=== PATIENT | female | born 2000 | race Caucasian/White ===

== ENCOUNTER → 2024-06-19 08:16 | Outpatient (BNVA) | payer BC, SELFPAY | PROVIDERS: Visit Provider Nurse Practitioner Women's Health | DX: N92.6 Irregular menstruation, unspecified (principal); E03.9 Hypothyroidism, unspecified; N39.0 Urinary tract infection, site not specified | CPT/HCPCS: 81025; 84315; 84439; 84443 ==

== ENCOUNTER → 2024-06-22 08:49 | Outpatient (BNVA) | payer SELFPAY | PROVIDERS: Visit Provider Nurse Practitioner Women's Health | DX: Z36.87 Encounter for antenatal screening for uncertain dates (principal); N83.292 Other ovarian cyst, left side; Z3A.01 Less than 8 weeks gestation of pregnancy | CPT/HCPCS: 76801 ==

== ENCOUNTER → 2024-07-08 09:52 | Outpatient (BNVA) | payer BC, MEDICAID, SELFPAY | PROVIDERS: Visit Provider Nurse Practitioner Women's Health | DX: Z34.90 Encounter for supervision of normal pregnancy, unspecified, unspecified trimester (principal); Z34.00 Encounter for supervision of normal first pregnancy, unspecified trimester | CPT/HCPCS: 80307; 84315; 85025; 86592; 86762; 86803; 86850; 86900; 87086; 87340; 87806 ==

== ENCOUNTER → 2024-07-23 10:57 | Outpatient (BNVA) | payer BC, MEDICAID, SELFPAY | PROVIDERS: Visit Provider Obstetrics & Gynecology | DX: Z34.01 Encounter for supervision of normal first pregnancy, first trimester (principal) | CPT/HCPCS: 84315; 87491; 87591; 87624 ==

== ENCOUNTER → 2024-08-07 09:30 | Outpatient (BNVA) | payer BC, MEDICAID, SELFPAY | PROVIDERS: Visit Provider Obstetrics & Gynecology | DX: E03.9 Hypothyroidism, unspecified (principal) | CPT/HCPCS: 84443 ==

== ENCOUNTER → 2024-08-21 13:56 | Outpatient (BNVA) | payer BC, MEDICAID, SELFPAY | PROVIDERS: Visit Provider Nurse Practitioner Women's Health | DX: Z34.01 Encounter for supervision of normal first pregnancy, first trimester (principal); Z34.90 Encounter for supervision of normal pregnancy, unspecified, unspecified trimester | CPT/HCPCS: 82105; 84315 ==

== ENCOUNTER → 2024-09-15 14:24 | Outpatient (BNVA) | payer BC, MEDICAID, SELFPAY | PROVIDERS: Visit Provider Obstetrics & Gynecology | DX: Z36.9 Encounter for antenatal screening, unspecified (principal) | CPT/HCPCS: 76805 ==

== ENCOUNTER → 2024-09-21 11:26 | Outpatient (BNVA) | payer BC, MEDICAID, SELFPAY | PROVIDERS: Visit Provider Obstetrics & Gynecology | DX: Z34.01 Encounter for supervision of normal first pregnancy, first trimester (principal) | CPT/HCPCS: 84315; 84443 ==

== ENCOUNTER → 2024-10-15 15:39 | Outpatient (BNVA) | payer BC, MEDICAID, SELFPAY | PROVIDERS: Visit Provider Obstetrics & Gynecology | DX: Z36.9 Encounter for antenatal screening, unspecified (principal) | CPT/HCPCS: 76816; 82950; 84315 ==

== ENCOUNTER → 2024-10-21 08:09 | Outpatient (BNVA) | payer BC, MEDICAID, SELFPAY | PROVIDERS: Visit Provider Nurse Practitioner Women's Health | DX: Z34.01 Encounter for supervision of normal first pregnancy, first trimester (principal) | CPT/HCPCS: 82951; 82952 ==

== ENCOUNTER → 2024-11-13 13:44 | Outpatient (BNVA) | payer BC, MEDICAID, SELFPAY | PROVIDERS: Visit Provider Obstetrics & Gynecology | DX: Z34.90 Encounter for supervision of normal pregnancy, unspecified, unspecified trimester (principal) | CPT/HCPCS: 84315 ==

== ENCOUNTER → 2024-11-19 13:39 | Outpatient (BNVA) | payer BC, MEDICAID, SELFPAY | PROVIDERS: Visit Provider Obstetrics & Gynecology | DX: Z34.90 Encounter for supervision of normal pregnancy, unspecified, unspecified trimester (principal) | CPT/HCPCS: 84315; 84443; 85025 ==

== ENCOUNTER → 2024-12-03 13:16 | Outpatient (BNVA) | payer BC, MEDICAID, SELFPAY | PROVIDERS: Visit Provider Obstetrics & Gynecology | DX: Z34.90 Encounter for supervision of normal pregnancy, unspecified, unspecified trimester (principal) | CPT/HCPCS: 84315 ==

== ENCOUNTER → 2024-12-18 14:02 | Outpatient (BNVA) | payer BC, MEDICAID, SELFPAY | PROVIDERS: Visit Provider Nurse Practitioner Women's Health | DX: Z34.90 Encounter for supervision of normal pregnancy, unspecified, unspecified trimester (principal) | CPT/HCPCS: 84315 ==

== ENCOUNTER → 2024-12-25 15:03 | Outpatient (BNVA) | payer BC, MEDICAID, SELFPAY | PROVIDERS: Visit Provider Nurse Practitioner Women's Health | DX: Z34.01 Encounter for supervision of normal first pregnancy, first trimester (principal) | CPT/HCPCS: 84315 ==

== ENCOUNTER → 2025-01-01 15:08 | Outpatient (BNVA) | payer BC, MEDICAID, SELFPAY | PROVIDERS: Visit Provider Obstetrics & Gynecology | DX: E03.9 Hypothyroidism, unspecified (principal); Z34.90 Encounter for supervision of normal pregnancy, unspecified, unspecified trimester | CPT/HCPCS: 84315; 84443; 87081 ==

== ENCOUNTER → 2025-01-04 13:10 | Outpatient (BNVA) | payer BC, MEDICAID, SELFPAY | PROVIDERS: Visit Provider Nurse Practitioner Women's Health | DX: Z36.9 Encounter for antenatal screening, unspecified (principal) | CPT/HCPCS: 76816 ==

== ENCOUNTER → 2025-01-08 07:38 | Outpatient (BNVA) | payer BC, MEDICAID, SELFPAY | PROVIDERS: Visit Provider Obstetrics & Gynecology | DX: Z34.01 Encounter for supervision of normal first pregnancy, first trimester (principal) | CPT/HCPCS: 84315 ==

== ENCOUNTER 2025-01-11 07:13 | Outpatient (CLI) | payer BC, MEDICAID, SELFPAY ==
[2025-01-11] VITALS (7 sets, daily range): BP systolic 111–126; BP diastolic 70–87; PULSE 73–82; BMI 30.2
[2025-01-11 08:59] LABS: Bacteria Urine 1+ /hpf; Hyaline Casts Urine 0.81 /lpf; RBC Urine 0-2 /hpf (0-2); WBC Urine 21-50 /hpf (0-5)
[2025-01-11 09:06] LABS: Urine Color Yellow (Yellow)
[2025-01-11 09:07] LABS: Add Urine Microscopic? YES; Bilirubin Urine Neg (Negative); Blood Urine Neg (Negative); Glucose Urine UA Norm (Normal); Ketones Urine Negative (Negative); Leukocyte Esterase Urine 2+ (Negative); Nitrate Urine Negative (Negative); Protein Urine Neg (Negative); Urine Appearance Cloudy (CLEAR); Urobilinogen Urine Neg (Negative); pH Urine 5 (5-7)
[2025-01-11 09:08] LABS: Add Urine Culture? Yes
[2025-01-11 09:16] LABS: Urine Creatinine 59 mg/dL (28-217); Urine Protein Random 5 mg/dL
[2025-01-11 09:18] LABS: UPRO/UCREAT Ratio 0.08 mg/mg CR
[2025-01-11 09:24] LABS: Basophils % 0.2 %; Eosinophils # 0.1 10^3/uL (0.0-0.8); Eosinophils % 0.7 %; Hematocrit 37.5 % (36-47); Lymphocytes # 1.4 10^3/uL (0.8-4.8); Lymphocytes % 15.2 %; Mean Corpuscular HGB Conc 32.8 g/dL (30-55); Mean Corpuscular Hemoglobin 28.5 pg (27-33); Mean Corpuscular Volume 86.8 fl (85-98); Mean Platelet Volume 10.9 fL (7.4-10.4); Monocytes # 0.8 10^3/uL (0.2-0.9); Monocytes % 8.7 %; Neutrophils # 7.07 10^3/uL (1.8-7.7); Neutrophils % 74.8 %; Nucleated Red Blood Cells % 0 %; Platelet Count 189 10^3/cmm (157-399); Red Blood Count 4.32 10^6/uL (3.85-5.65); Red Cell Distribution Width 12.7 % (12.1-15.1); White Blood Count 9.46 10^3/uL (3.29-11.43)
[2025-01-11 09:47] LABS: Alanine Aminotransferase 12 U/L (0-33); Albumin Level 3.5 g/dL (3.5-5.2); Alkaline Phosphatase 128 U/L (35-105); Anion Gap 16.8 (5-19); Aspartate Amino Transferase 21 U/L (0-32); Blood Urea Nitrogen 7 mg/dL (6-20); Calcium 8.5 mg/dL (8.5-10.5); Carbon Dioxide 19 mmol/L (22-29); Chloride 104 mmol/L (98-107); Globulin 2.8 g/dL (1.3-4.6); Glomerular Filtration Rate 199.6 mL/min (90-130); Glucose 77 mg/dL (65-115); Osmolality Calculated 279 mOsm/kg (285-295); Potassium 3.8 mmol/L (3.5-5.1); Sodium 136 mmol/L (136-145); Total Bilirubin 0.2 mg/dL (0.15-1.2); Total Protein 6.3 g/dL (6.6-8.7)
== END 2025-01-11 10:02 | disposition home or self-care (01) ==
LOC: OPOB 07:21 → OBGYN 07:27
PROVIDERS: Visit Provider Obstetrics & Gynecology
DX: O26.899 Other specified pregnancy related conditions, unspecified trimester (principal); Z3A.00 Weeks of gestation of pregnancy not specified; R51.9 Headache, unspecified
CPT/HCPCS: 36415; 59025; 80053; 81001; 82570; 84156; 84550; 85025; 87086; 99211

== ENCOUNTER → 2025-01-15 13:07 | Outpatient (BNVA) | payer BC, MEDICAID, SELFPAY | PROVIDERS: Visit Provider Nurse Practitioner Women's Health | DX: Z34.90 Encounter for supervision of normal pregnancy, unspecified, unspecified trimester (principal); E03.9 Hypothyroidism, unspecified | CPT/HCPCS: 84315; 84443 ==

== ENCOUNTER → 2025-01-20 12:57 | Outpatient (BNVA) | payer BC, MEDICAID, SELFPAY | PROVIDERS: Visit Provider Obstetrics & Gynecology | DX: Z34.01 Encounter for supervision of normal first pregnancy, first trimester (principal) | CPT/HCPCS: 84315 ==

== ENCOUNTER 2025-01-29 16:36 | Inpatient (IN) | payer BC, MEDICAID, SELFPAY ==
[2025-01-29] VITALS (19 sets, daily range): BP systolic 116–134; BP diastolic 71–96; PULSE 65–100; RESP 16; TEMP 35.8–36.7; BMI 30.7
--- NOTE | 2025-01-29 15:53 | PM.OPHPUD ---
Labor & Delivery H&P Update Date of Procedure: January 29, 2025 Date H&P Performed: 01/20/25 Changes to previous documentation: 24-year-old female G1, P0 at 39 weeks gestation with DAWIT 01/29/2025 seen in clinic today for evaluation. Elective induction of labor was reviewed with patient and patient sent to labor and delivery. record has been reviewed, discussion of elective induction of labor to include cervical ripening with Cytotec, followed by Pitocin was reviewed. Patient understands that if nonreassuring monitoring results at any stage of this induction induction will be discontinued and a section performed if necessary. NST?category 1 Bedside ultrasound for presentation?Vertex Nursing pelvic exam?cervix fingertip/thick/-4 Admission Diagnosis: Primary indication for procedure: Elective induction of labor Planned procedure: Cervical ripening/induction of labor Related Problem List Diagnoses (1) 39 weeks gestation of : Admitted to labor and delivery for cervical ripening/induction electively. Risk and benefits reviewed. (2) Supervision of normal first : (3) Hypothyroidism: Diagnosed hypothyroidism age 7 or 9 treated with levothyroxine.
[2025-01-29 15:59] LABS: Basophils % 0.3 %; Eosinophils # 0.1 10^3/uL (0.0-0.8); Eosinophils % 0.6 %; Hematocrit 36.9 % (36-47); Lymphocytes # 1.4 10^3/uL (0.8-4.8); Lymphocytes % 16.3 %; Mean Corpuscular HGB Conc 33.1 g/dL (30-55); Mean Corpuscular Hemoglobin 28.2 pg (27-33); Mean Corpuscular Volume 85.4 fl (85-98); Mean Platelet Volume 11.3 fL (7.4-10.4); Monocytes # 0.7 10^3/uL (0.2-0.9); Monocytes % 8.5 %; Neutrophils # 6.44 10^3/uL (1.8-7.7); Nucleated Red Blood Cells % 0 %; Platelet Count 212 10^3/cmm (157-399); Red Blood Count 4.32 10^6/uL (3.85-5.65); Red Cell Distribution Width 13.2 % (12.1-15.1); White Blood Count 8.71 10^3/uL (3.29-11.43)
[2025-01-29] MEDS: miSOPROStol 100 mcg tablet 25 MCG VAGINAL ×2 (16:28→20:35)
[2025-01-30] VITALS (21 sets, daily range): BP systolic 109–138; BP diastolic 62–92; PULSE 61–83; RESP 18; TEMP 35.5–36.7
[2025-01-30] MEDS: miSOPROStol 100 mcg tablet 25 MCG VAGINAL ×3 (01:04→16:40)
--- NOTE | 2025-01-30 11:29 | P.PN_ITS ---
BIOMEDICAL MANAGER Subjective 2 Subjective: Interval history: 24-year-old G1, P0 at 40.1 weeks gestati on seen on labor and delivery day #2 of cervical ripening for elective induction of labor. Patient missed a good movement and occasional contractions felt. Cytotec No. 4 has been placed, cervix by nursing staff 1 cm / 50%/-3. EFM?category 1. Discussion again with the process of cervical ripening and induction, and the need for patience as progress occurs. Discussed patient being allowed to have a meal since there has been no progress by cervix exam. Patient encouraged to ambulate after this last dose of Cytotec has been placed vaginally for 1 hour. Patient and family understands and agrees. Labor: Station: -3 Amniotic Membrane Status: Intact Monitor Mode: External Contraction Pattern: Irregular Vitals/I&O/Wt Last Vital Signs Temp 95.9 F L 01/30/25 01:42 Pulse 68 01/30/25 10:54 Resp 16 01/29/25 20:09 BP 129/84 01/30/25 10:54 O2 Del Method Room Air 01/29/25 15:04 Weight last 48 hrs Weight 81.193 kg Data 01/29/25 15:36 A&P Assessment and plan (1) Supervision of normal first : Qualifiers: Trimester: first trimester Qualified Code(s): Z34.01 - Encounter for supervision of normal first , first trimester (2) 39 weeks gestation of : Plan Continue cervical ripening/elective induction of labor. PDMP PDMP Reviewed: Not Reviewed Attestations 2 Medical Necessity Statement*: Elective IOL Coding Level of Care Code Acute Code for Chg Fwd Diagnoses Encounter for supervision of normal first in first trimester Z34.01 Trimester: first trimester 39 weeks gestation of Z3A.39
[2025-01-30] MEDS: dextrose 5%-lactated ringers 1,000 ML 125 ML IV (21:08)
[2025-01-30] MEDS: oxytocin 30 UNIT/500 ML BAG IV (21:08)
[2025-01-31] VITALS (71 sets, daily range): BP systolic 114–153; BP diastolic 74–102; PULSE 55–101; RESP 16–18; TEMP 36.6–38.2; O2SAT 91–100
[2025-01-31] MEDS: dextrose 5%-lactated ringers 1,000 ML 125 ML IV ×5 (05:24→23:39)
--- NOTE | 2025-01-31 08:50 | PC.NURSE ---
0700 THIS PROJECT ENGINEER WAS TOLD IN SHIFT REPORT THAT PITOCIN IS AT LOW DOSE.
--- NOTE | 2025-01-31 09:50 | P.PN_ITS ---
ACTIVITIES DIRECTOR Subjective 2 Subjective: Interval history: 24-year-old female G1, P0 at 40.2 weeks gestation seen for continued induction of labor. Overnight patient has contracted irregularly and is presently on 12 units of Pitocin. She states her contractions are mild and admits to good movement. Discussion of induction and explanation for AROM to assist with labor. Patient and family understand and agree. EFM?category 1 Cervix?1/90%/-2 vertex AROM?meconium stained fluid noted Labor: Station: -3 Amniotic Membrane Status: Intact Monitor Mode: Palpation Contraction Pattern: Irregular Status: Category I Vitals/I&O/Wt Last Vital Signs Temp 98.6 F 01/31/25 06:55 Pulse 66 01/31/25 09:13 Resp 18 01/31/25 06:55 BP 127/86 01/31/25 09:13 O2 Del Method Room Air 01/30/25 21:09 01/30/25 01/31/25 01/31/25 22:59 06:59 14:59 Intake Total 5.534 / 5.534 1024.25 / 1029.784 18.0 / 18.0 Balance 5.534 / 5.534 1024.25 / 1029.784 18.0 / 18.0 Weight last 48 hrs Weight 81.193 kg Physical Exam 2 Back/Pelvis: OTHER: Pelvic exam as above Extremity: COMMON NORMALS: normal to inspection and no clubbing, cyanosis or edema Data 01/29/25 15:36 A&P Assessment and plan (1) 40 weeks gestation of : Continue IOL Epidural at patient's request. (2) Hypothyroidism: Qualifiers: Hypothyroidism type: acquired Qualified Code(s): E03.9 - Hypothyroidism, unspecified (3) Supervision of normal first : Qualifiers: Trimester: first trimester Qualified Code(s): Z34.01 - Encounter for supervision of normal first , first trimester PDMP PDMP Reviewed: Not Reviewed Attestations 2 Medical Necessity Statement*: Elective induction of labor for delivery at 40 weeks Coding Level of Care Code Acute Code for Chg Fwd Diagnoses 40 weeks gestation of Z3A.40 Acquired hypothyroidism E03.9 Hypothyroidism type: acquired Encounter for supervision of normal first in first trimester Z34.01 Trimester: first trimester
--- NOTE | 2025-01-31 12:27 | P.PN_ITS ---
MACHINE PRINTER Subjective 2 Subjective: Interval history: 24-year-old female G1, P0 at 40.2 weeks gestation now requesting epidural anesthesia for pain management. EFM?episodes of decreased variability, contractions q. 2 to 6 minutes. Continues to produce minimum to moderately stained meconium stained fluid. Will supplement with D5 LR IV fluid in hopes of increasing variability. Patient has not eaten in 24 hours. Labor: Station: -3 Amniotic Membrane Status: Intact Monitor Mode: External Contraction Pattern: Regular Status: Category I Vitals/I&O/Wt Last Vital Signs Temp 97.8 F 01/31/25 11:00 Pulse 65 01/31/25 12:18 Resp 16 01/31/25 11:00 BP 141/96 01/31/25 12:18 O2 Del Method Room Air 01/30/25 21:09 01/30/25 01/31/25 01/31/25 22:59 06:59 14:59 Intake Total 5.534 / 5.534 1024.25 / 1029.784 853.167 / 853.167 Balance 5.534 / 5.534 1024.25 / 1029.784 853.167 / 853.167 Weight last 48 hrs Weight 81.193 kg Data 01/29/25 15:36 A&P Assessment and plan (1) 40 weeks gestation of : (2) Supervision of normal first : Qualifiers: Trimester: first trimester Qualified Code(s): Z34.01 - Encounter for supervision of normal first , first trimester (3) Hypothyroidism: Qualifiers: Hypothyroidism type: acquired Qualified Code(s): E03.9 - Hypothyroidism, unspecified (4) Thick meconium stained amniotic fluid: PDMP PDMP Reviewed: Not Reviewed Attestations 2 Medical Necessity Statement*: Elective induction of labor. Coding Level of Care Code Acute Code for Chg Fwd Diagnoses 40 weeks gestation of Z3A.40 Encounter for supervision of normal first in first trimester Z34.01 Trimester: first trimester Acquired hypothyroidism E03.9 Hypothyroidism type: acquired Thick meconium stained amniotic fluid P96.83
--- NOTE | 2025-01-31 12:52 | ANES.PREANE2 ---
Pre-Anesthetic Assessment Height/Weight: Height 1.63 m Weight 81.193 kg Temp Pulse Resp BP Pulse Ox O2 Del Method 97.8 F 101 H 16 140/92 91 Room Air 01/31/25 11:00 01/31/25 12:48 01/31/25 11:00 01/31/25 12:46 01/31/25 12:48 01/30/25 21:09 Preop Diagnosis: Intrauterine Epidural Familial anesthetic complications: none Was Beta Selwyn taken within 24 hours: N/A Was Clonidine taken within 24 hours: N/A Last intake: 209901/30/25 Social No alcohol and No tobacco Exam alert, oriented x 3, clear to auscultation bilaterally and regular rate & rhythm Airway Cervical ROM: within normal limits Mallampati: Class II Dentition: full History/ROS No significant history except as noted Pulmonary None reported CV/HEM None reported None reported Hepatic None reported GI None reported Metabolic Thyroid Disease (Hypothyroid) Musc/skel None reported Neuropsych None reported Anesthetic Plan ASA status: 2 Anesthesia: Regional (specify below) (Epidural) Medications/Allergies Home Medications ?Medication ?Instructions ?Recorded ?Confirmed ?Last Taken ?Type levothyroxine 150 mcg tablet 150 mcg PO DAILY #30 tabs 11/20/24 01/30/25 Unknown Rx (Levoxyl) vitamin#30 30 mg iron-10 1 cap PO DAILY 01/15/25 01/30/25 Unknown History mg iron-folic acid 1 mg-omg3 capsule promethazine 25 mg tablet 25 mg PO Q6H PRN nausea and 01/15/25 01/30/25 Unknown Rx vomiting #30 tabs Allergies Allergy/AdvReac Type Severity Reaction Status Date / Time No Known Allergies Allergy Verified 01/29/25 12:54 Current Medications Generic Name Dose Route Start Last Admin Trade Name Freq PRN Reason Stop Dose Admin Dextrose/Lactated Ringer's 1,000 mls @ 125 mls/hr 01/29/25 16:00 01/31/25 11:50 Dextrose 5%-Lactated Ringers IV 125 mls/hr .Q8H IAN Administration Oxytocin 30 unit in 500 mls @ 1 mls/hr 01/30/25 20:45 01/31/25 11:15 Pitocin IV 14 milliunit/min .Q24H IAN 14 mls/hr Titration Protocol 1 MILLIUNIT/MIN Misoprostol 25 mcg 01/30/25 08:08 01/30/25 16:40 Misoprostol 100 Mcg Tablet VAGINAL 25 mcg Q4H PRN Administration cervical ripening PFSH Anesthesia Medical History Nasal sinus congestion No pertinent past medical history Neghx: htn, dm, dvt/pe PCP: None Hypothyroidism Surgical History History of appendectomy Family History Grandmother Breast cancer Thyroid disease Sister Thyroid disease Father Thyroid disease Mother Thyroid disease Denies family history of Colon cancer Ovarian cancer Prostate cancer Diabetes Heart disease Hypertension Uterine cancer Stroke Social History Smoking and tobacco/nicotine status: never used tobacco/nicotine Female Reproductive History : 1 Data Anesthesia 01/29/25 15:36 Short CBC 01/29/25 Range/Units 15:36 WBC 8.71 (3.29-11.43) 10^3/uL Hgb 12.20 (11.27-16.99) g/dL Hct 36.9 (36-47) % MCV 85.4 (85-98) fl Plt Count 212 (157-399) 10^3/cmm Neut % (Auto) 74.0 % Neut # (Auto) 6.44 (1.8-7.7) 10^3/uL Blood Bank 01/29/25 15:36 Blood Type O Positive Rho(D) Type Rh positive Antibody Screen Negative Cardiac Studies: No Data to Display Anesthesia Procedures Epidural Time Out Performed: Yes (Reviewed patient name, , allergy, last cervical check, labs, procedure) Consents Signed: Procedure Consent Consent: requested by attending/covering physician and from patient Lumbar Level: L4-L5 Epidural position: sitting Epidural procedure: sterile prep of area, 1% lidocaine to numb the area, 18 g needle, negative for paresthesia passed, neg for paresthesia, test dose given, 1.5% xylocaine 1:200k epi, 0.2% Ropivacaine bolus ml, placed PCEA, no systemic response, sterile dressing applied, L.U.D. no apparent complications and 0.2% Ropiavacaine @ mls/hr (13) Additional Comments: MELVIN @ 6cm, catheter @ 11cm, easy placement, no complications. Pt. tolerated well.
[2025-01-31] MEDS: ROPivacaine syringe 100 MG/50 ML SYRINGE 13 MG EPIDURAL ×3 (12:55→20:20)
--- NOTE | 2025-01-31 13:32 | PM.OBGYPN ---
RADIO MESSAGE ROUTER Subjective Subjective: Interval history: 24-year-old female G1, P0 at 40.2 weeks gestation seen on labor and delivery with continued induction of labor. Patient had 24 hours of Cytotec cervical ripening (4 doses) followed by Pitocin. This a.m. AROM revealed moderate meconium stained fluid. EFM?episodes of decreased variability without decelerations noted. With this category 2 strip noted there has been episodes of increased variability after IV D5 LR. Patient received epidural anesthesia for pain management 20 to 30 minutes ago. Just reviewed with patient and family decreased variability and its concern of wellbeing plan of possible if EFM does not show improvement. Nursing staff is present has reposition patient to her left side, and O2 applied through mask. All present verbalized understanding. Cervix?2 cm / 90%/-2 vertex Contractions every 5 to 6 minutes. Labor: Station: -2 Amniotic Membrane Status: Intact Monitor Mode: External Contraction Pattern: Regular Status: Category I Vitals/I&O/Wt Last Vital Signs Temp 98.4 F 01/31/25 12:00 Pulse 67 01/31/25 13:20 Resp 16 01/31/25 11:00 BP 137/90 01/31/25 13:20 Pulse Ox 100 01/31/25 13:01 O2 Del Method Room Air 01/30/25 21:09 01/30/25 01/31/25 01/31/25 22:59 06:59 14:59 Intake Total 5.534 / 5.534 1024.25 / 1029.784 990.667 / 990.667 Balance 5.534 / 5.534 1024.25 / 1029.784 990.667 / 990.667 Weight last 48 hrs Weight 81.193 kg Data 01/29/25 15:36 A&P Assessment and plan (1) Supervision of normal first : Qualifiers: Trimester: first trimester Qualified Code(s): Z34.01 - Encounter for supervision of normal first , first trimester (2) Hypothyroidism: Qualifiers: Hypothyroidism type: acquired Qualified Code(s): E03.9 - Hypothyroidism, unspecified (3) 40 weeks gestation of : (4) Thick meconium stained amniotic fluid: PDMP PDMP Reviewed: Not Reviewed Attestations Medical Necessity Statement*: Elective IOL. Coding Level of Care Code Acute Code for Chg Fwd Diagnoses Encounter for supervision of normal first in first trimester Z34.01 Trimester: first trimester Acquired hypothyroidism E03.9 Hypothyroidism type: acquired 40 weeks gestation of Z3A.40 Thick meconium stained amniotic fluid P96.83
--- NOTE | 2025-01-31 13:56 | PM.OBGYPN ---
SECURITY SERVICES SPECIALIST Subjective Subjective: Interval history: 24-year-old female G1, P0 at 40.2 weeks gestation admitted for 2024 for elective induction of labor. Patient had episodes of minimal variability since AROM. Intrauterine resuscitation techniques including IV fluid bolus, lateral positioning to the left and discontinuance of oxytocin were done. Placement of FSE and IUPC were done for better evaluation, and resulted in moderate variability. Again reviewed with patient and family we will continue monitoring with close observation of heart rate tracing. Labor: Station: -2 Amniotic Membrane Status: Intact Monitor Mode: External Contraction Pattern: Regular Status: Category I Vitals/I&O/Wt Last Vital Signs Temp 98.4 F 01/31/25 12:00 Pulse 63 01/31/25 13:50 Resp 16 01/31/25 11:00 BP 145/90 01/31/25 13:50 Pulse Ox 100 01/31/25 13:01 O2 Del Method Room Air 01/30/25 21:09 01/30/25 01/31/25 01/31/25 22:59 06:59 14:59 Intake Total 5.534 / 5.534 1024.25 / 1029.784 990.667 / 990.667 Balance 5.534 / 5.534 1024.25 / 1029.784 990.667 / 990.667 Weight last 48 hrs Weight 81.193 kg Physical Exam Urinary Catheter Management: Elena: Cath Placed During This Visit: yes Urinary Catheter Date of Insertion: 01/31/25 Urinary Catheter Time of Insertion: 13:00 Data 01/29/25 15:36 A&P Assessment and plan (1) Hypothyroidism: Qualifiers: Hypothyroidism type: acquired Qualified Code(s): E03.9 - Hypothyroidism, unspecified (2) Supervision of normal first : Qualifiers: Trimester: first trimester Qualified Code(s): Z34.01 - Encounter for supervision of normal first , first trimester (3) 40 weeks gestation of : (4) Thick meconium stained amniotic fluid: PDMP PDMP Reviewed: Not Reviewed Attestations Medical Necessity Statement*: Elective induction of labor Coding Level of Care Code Acute Code for Chg Fwd Diagnoses Acquired hypothyroidism E03.9 Hypothyroidism type: acquired Encounter for supervision of normal first in first trimester Z34.01 Trimester: first trimester 40 weeks gestation of Z3A.40 Thick meconium stained amniotic fluid P96.83
--- NOTE | 2025-01-31 14:46 | PC.NURSE ---
1430 ORDER OF PITOCIN TO RESTART AT 10 AND INCREASE BY 2 EVERY 30 MINUTES.
--- NOTE | 2025-01-31 15:12 | P.PN_ITS ---
SUPERVISOR VEGETABLE FARMING Subjective 2 Subjective: Interval history: 24-year-old female G1, P0 at 40.2 weeks gestation continues to have episodes of decreased variability. Baby reacts to scalp stimulation with increased variability for a category 1 tracing. Cervix?2 to 3 cm / 90%/-1 vertex FSE is well applied but IUPC had to be removed for it was not tracing. Contractions are being monitored by external toco. Patient comfortable with epidural. Labor: Station: -2 Amniotic Membrane Status: Intact Monitor Mode: External Contraction Pattern: Regular Status: Category I Vitals/I&O/Wt Last Vital Signs Temp 98.4 F 01/31/25 12:00 Pulse 62 01/31/25 15:04 Resp 16 01/31/25 11:00 BP 132/89 01/31/25 15:04 Pulse Ox 100 01/31/25 13:01 O2 Del Method Room Air 01/30/25 21:09 01/31/25 01/31/25 01/31/25 06:59 14:59 22:59 Intake Total 1024.25 / 8670.286 4986.250 / 1274.250 Balance 1024.25 / 1406.925 4985.250 / 1274.250 Physical Exam 2 Urinary Catheter Management: Elena: Cath Placed During This Visit: yes Urinary Catheter Date of Insertion: 01/31/25 Urinary Catheter Time of Insertion: 13:00 Data 01/29/25 15:36 A&P Assessment and plan (1) Hypothyroidism: Qualifiers: Hypothyroidism type: acquired Qualified Code(s): E03.9 - Hypothyroidism, unspecified (2) Supervision of normal first : Qualifiers: Trimester: first trimester Qualified Code(s): Z34.01 - Encounter for supervision of normal first , first trimester (3) 40 weeks gestation of : (4) Thick meconium stained amniotic fluid: PDMP PDMP Reviewed: Not Reviewed Attestations 2 Medical Necessity Statement*: Elective induction of labor Coding Level of Care Code Acute Code for Chg Fwd Diagnoses Acquired hypothyroidism E03.9 Hypothyroidism type: acquired Encounter for supervision of normal first in first trimester Z34.01 Trimester: first trimester 40 weeks gestation of Z3A.40 Thick meconium stained amniotic fluid P96.83
[2025-01-31] MEDS: ondansetron 2 mg/ML SDV 2 mL 4 MG IVP (20:14)
[2025-01-31] MEDS: acetaminophen 325 mg Tablet 650 MG PO (21:14)
--- NOTE | 2025-01-31 22:44 | PM.OBGYPN ---
BUSINESS DIVISION CHAIR Subjective Subjective: Interval history: 24yo female at 40.2 wks in for elective IOL. Nursing staff called withreport of elevated temp 100.7, treated with ASA. Pt complete/+1, contractions q 2-5 . FSE- decreased variability with no decels. Will start pushing. Labor: Station: +1 Amniotic Membrane Status: Intact Monitor Mode: External Contraction Pattern: Regular Status: Category I Vitals/I&O/Wt Last Vital Signs Temp 100.7 F H 01/31/25 21:01 Pulse 74 01/31/25 22:34 Resp 18 01/31/25 18:30 BP 134/87 01/31/25 22:34 Pulse Ox 100 01/31/25 13:01 O2 Del Method Room Air 01/30/25 21:09 01/31/25 01/31/25 01/31/25 06:59 14:59 22:59 Intake Total 1024.25 / 5884.901 7516.250 / 1274.250 135 / 1409.250 Balance 1024.25 / 6072.292 3093.250 / 1274.250 135 / 1409.250 Physical Exam Urinary Catheter Management: Elena: Cath Placed During This Visit: yes Reason for Continuing Indwelling Catheter: Other Urinary Catheter Date of Insertion: 01/31/25 Urinary Catheter Time of Insertion: 13:00 Data 01/29/25 15:36 A&P Assessment and plan (1) Hypothyroidism: Qualifiers: Hypothyroidism type: acquired Qualified Code(s): E03.9 - Hypothyroidism, unspecified (2) Supervision of normal first : Qualifiers: Trimester: first trimester Qualified Code(s): Z34.01 - Encounter for supervision of normal first , first trimester (3) 40 weeks gestation of : GBS Neg. (4) Thick meconium stained amniotic fluid: PDMP PDMP Reviewed: Not Reviewed Attestations Medical Necessity Statement*: Elective IOL. Coding Level of Care Code Acute Code for Chg Fwd Diagnoses Acquired hypothyroidism E03.9 Hypothyroidism type: acquired Encounter for supervision of normal first in first trimester Z34.01 Trimester: first trimester 40 weeks gestation of Z3A.40 Thick meconium stained amniotic fluid P96.83
[2025-02-01] VITALS (57 sets, daily range): BP systolic 97–156; BP diastolic 59–106; PULSE 59–153; RESP 16–118; TEMP 36.4–36.6; O2SAT 91–100
[2025-02-01] MEDS: lidocaine 2% INJ 20 mL INJECTION (02:11)
[2025-02-01] MEDS: oxytocin 30 UNIT/500 ML BAG 600 UNIT IV (02:34)
--- NOTE | 2025-02-01 03:03 | P.PCNOB_ITS ---
Delivery Note: Date of delivery: February 01, 2025 Pre-delivery diagnoses: 40.3wk gestation Supervision of normal first Meconium stained fluid Maternal hypothyroidism Post-delivery diagnoses: Maternal temperature 102, decrease to 100.8 Persistent OP presentation with spontaneous rotation to OA Procedure: Elective induction of labor with Cytotec for cervical ripening viable female Op report anesthesia: Epidural Delivering Physician: Dave GAMBLE Estimated blood loss (mL): 400 Findings: Viable female Post Delivery Diagnoses: Hypothyroidism: Qualifiers: Hypothyroidism type: acquired Qualified Code(s): E03.9 - Hypothyroidism, unspecified Pre-Delivery Course: 24-year-old female G1, P0 at 40.3 weeks gestation, DAWIT 01/29/2025 was admitted to labor and delivery for elective induction of labor. Cervical ripening with Cytotec x 4 doses followed by Pitocin . AROM reveiled Gross Meconium fluid.. Predelivery patient had a elevated temperature of 102. Vital signs were otherwise normal. Delivery: 24-year-old female G1, P0 now G1, P1 del ivered via low outlet forceps assistance for vaginal delivery. The vertex was persistent OP and rotated at the perineum to OA presentation. Patient had difficulty pushing past the perineum so low outlet forceps (Diego's) will use to guide the vertex over the perineum. A second-degree midline episiotomy was performed which extended to 1/3 degree. The forceps were removed as the head delivered, the anterior then posterior shoulders delivered spontaneously followed by the remainder of the baby's body. The umbilical cord was clamped after 1 minute delay and cut. The baby was then placed on the mother's abdomen and nursing staff evaluated and resuscitated. Baby was then taken to the warmer dried and stimulated and and given CPAP. Baby was then transported to the nursery where CPAP was continued and then shortly discontinued. Cord blood arterial and venous pH were drawn and handed off. The umbilical cord was examined 3 vessels noted, the uterus was massaged, and Pitocin bolus started. The cervix and vagina were evaluated with a 3rd degree extension of the second- degree episiotomy noted. Allis clamps were use to approximate the muscle which was approximated with 0 Vicryl in a [id number] x 2. With good approximation the Allis clamps were removed. The second-degree episiotomy was repaired with 2-0 Vicryl with a running interlocking stitch with good approximation. A finger was placed in the rectum and the rectal mucosa noted intact. The vagina was once again explored with no other lacerations noted. Good hemostasis noted. The uterus again was massaged and the placenta presented in a Escamilla presentation with trailing membranes. Uterus was massaged and firmed well. Mother and infant are both in stable satisfactory condition.. Post-Delivery Status: Stable History History History 1 Term 0 Miscarriages/Ectopic Living Children A&P Assessment and plan (1) Hypothyroidism: Qualifiers: Hypothyroidism type: acquired Qualified Code(s): E03.9 - Hypothyr oidism, unspecified (2) 40 weeks gestation of : (3) Thick meconium stained amniotic fluid: (4) (spontaneous vaginal delivery): Low at lip forcep assisted vaginal delivery (symptoms) Second-degree episiotomy with third-degree as extension (5) Maternal fever during labor: Plan Began care IV antibiotics due to maternal temperature. PDMP PDMP Reviewed: Not Reviewed Coding Level of Care Code Acute Code for Chg Fwd Diagnoses Acquired hypothyroidism E03.9 Hypothyroidism type: acquired 40 weeks gestation of Z3A.40 Thick meconium stained amniotic fluid P96.83 (spontaneous vaginal delivery) O80 Maternal fever during labor O75.2
[2025-02-01] MEDS: HYDROcodone-acetaminophen 5-325 mg Tablet PO (04:35)
[2025-02-01] MEDS: cefTRIAXone 1,000 mg SDV 1000 MG IVP (04:36)
[2025-02-01] MEDS: docusate sodium 100 mg Capsule PO ×2 (08:30→20:20)
[2025-02-01] MEDS: PRENATAL VIT NO.130/IRON/FOLIC 1 EACH TABLET PO (08:30)
[2025-02-01] MEDS: ibuprofen 800 mg tablet PO ×3 (08:30→20:20)
[2025-02-01] MEDS: benzocaine-menthol 78 gm Canister 1 SPRAY TOPICAL (08:30)
--- NOTE | 2025-02-01 13:24 | PM.OBGYPN ---
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 Patient had a second-degree midline episiotomy with third-degree extension. VSS, afebrile Patient had a low-grade postdelivery temperature of 100.8, Tmax 102 toward the end of labor. This was treated with Tylenol and 1 g of Rocephin. Patient has since been afebrile. Patient's admit lab?positive leukocyte esterase Apgars 7/8 weight 3550 Grams (7.8 pounds) baby initially required CPAP but after several minutes no further resuscitation was needed. There was gross meconium stained fluid, and episodes of decreased variability. While pushing tachycardia was noted, but no decelerations were encountered. Patient is awake, tolerating regular diet and has voided several times. Patient is ambulating without headache, blurred vision or dizziness. She denies chest pain or shortness of breath. Patient complains of vaginal tenderness, and has a moderate amount of swelling. This was discussed in great detail, she pushed for nearly 2 hours. She is encouraged to use Tylenol or ibuprofen for pain and ice and other [id number]'s for perineal swelling. She is discouraged to have sex, douching or tampons use over the next 6 weeks. Healing is targeted for 6 to 8 weeks but may take longer. Patient verbalizes understanding. Probable discharge on 02/02/2025 if no complications, I explained to patient that I will be off call and Dr. Crowley will see her then. Patient and family verbalized understanding. Labor: Station: +1 Amniotic Membrane Status: Intact Monitor Mode: External Contraction Pattern: Regular Status: Category I Vitals/I&O/Wt Last Vital Signs Temp 97.7 F 02/01/25 10:10 Pulse 61 02/01/25 10:10 Resp 16 02/01/25 10:10 BP 151/86 02/01/25 10:10 Pulse Ox 96 02/01/25 10:10 O2 Del Method Room Air 02/01/25 10:10 01/31/25 02/01/25 02/01/25 22:59 06:59 14:59 Intake Total 1135 / 2409.250 618 / 3027.250 Balance 1135 / 2409.250 618 / 3027.250 Physical Exam Back/Pelvis: OTHER: Abdomen soft, fundus firm. Lochia?rubra, light. Labia with moderate amount of swelling, no firmness or increased temperature no sign of infection.. Extremity: COMMON NORMALS: normal to inspection, no clubbing, cyanosis or edema and no calf tenderness Urinary Catheter Management: Elena: Cath Placed During This Visit: yes Reason for Continuing Indwelling Catheter: Other Urinary Catheter Date of Insertion: 01/31/25 Urinary Catheter Time of Insertion: 13:00 Data 01/29/25 15:36 A&P Assessment and plan (1) UTI (urinary tract infection): Treated with IV Rocephin 1 g postdelivery. (2) Hypothyroidism: Qualifiers: Hypothyroidism type: acquired Qualified Code(s): E03.9 - Hypothyroidism, unspecified (3) Supervision of normal first : Qualifiers: Trimester: first trimester Qualified Code(s): Z34.01 - Encounter for supervision of normal first , first trimester (4) 40 weeks gestation of : (5) Thick meconium stained amniotic fluid: (6) (spontaneous vaginal delivery): S/p low outlet forcep assisted vaginal delivery with second-degree episiotomy and third-degree extension repaired on 02/01/2025. (7) Maternal fever during labor: Resolved Plan Continue course. PDMP PDMP Reviewed: Not Reviewed Attestations Medical Necessity Statement*: Patient was admitted 01/30/2025 for elective induction of labor. Coding Level of Care Code Acute Code for Chg Fwd Diagnoses UTI (urinary tract infection) N39.0 Acquired hypothyroidism E03.9 Hypothyroidism type: acquired Encounter for supervision of normal first in first trimester Z34.01 Trimester: first trimester 40 weeks gestation of Z3A.40 Thick meconium stained amniotic fluid P96.83 (spontaneous vaginal delivery) O80 Maternal fever during labor O75.2
[2025-02-01 14:48] LABS: Hematocrit 34.7 % (36-47); Mean Corpuscular HGB Conc 33.4 g/dL (30-55); Mean Corpuscular Hemoglobin 28.7 pg (27-33); Mean Corpuscular Volume 85.9 fl (85-98); Platelet Count 134 10^3/cmm (157-399); Red Blood Count 4.04 10^6/uL (3.85-5.65); Red Cell Distribution Width 13.4 % (12.1-15.1); White Blood Count 23.41 10^3/uL (3.29-11.43)
[2025-02-02 04:01] VITALS: BP 122/77; PULSE 78; RESP 16; TEMP 36.9; O2SAT 98
[2025-02-02] MEDS: acetaminophen 325 mg Tablet 650 MG PO (06:26)
[2025-02-02] MEDS: docusate sodium 100 mg Capsule PO ×2 (09:02→20:19)
[2025-02-02] MEDS: ibuprofen 800 mg tablet PO ×3 (09:02→20:19)
[2025-02-02] MEDS: PRENATAL VIT NO.130/IRON/FOLIC 1 EACH TABLET PO (09:02)
[2025-02-02 11:00] VITALS: BP 150/94; PULSE 74; TEMP 36.6
[2025-02-02 13:15] VITALS: BP 140/104
--- NOTE | 2025-02-02 14:05 | PM.OBGYPN ---
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 s/p IOL at 40 w 3 d s/p low outlet forceps vaginal delivery with repair of third-degree perineal laceration PPD #1 No c/o except for mild perineal pain relieved with pain medication No headaches, blurry vision, abdominal pain, swelling No vaginal bleeding Labor: Station: +1 Amniotic Membrane Status: Intact Monitor Mode: External Contraction Pattern: Regular Status: Category I Vitals/I&O/Wt Last Vital Signs Temp 98.4 F 02/02/25 22:07 Pulse 74 02/02/25 22:07 Resp 16 02/02/25 22:07 BP 142/94 02/02/25 22:07 Pulse Ox 97 02/02/25 22:07 O2 Del Method Room Air 02/02/25 22:07 02/02/25 02/02/25 02/03/25 14:59 22:59 06:59 Intake Total 1110 / 1110 Balance 1110 / 1110 Physical Exam Narrative: General comfortable, awake, alert BPs 122 / 77; 150 / 94; 140 / 104; 138 / 92 VS afebrile Lungs: clear Cor: RRR Abd: soft, nontender. Fundus firm Ext: no edema Urinary Catheter Management: Elena: Cath Placed During This Visit: yes Reason for Continuing Indwelling Catheter: Other Urinary Catheter Date of Insertion: 01/31/25 Urinary Catheter Time of Insertion: 13:00 Data 02/01/25 14:35 A&P Assessment and plan (1) (spontaneous vaginal delivery): PPD #1 Doing well Mildly elevated BPs Will continue to observe Continue care PDMP PDMP Reviewed: Not Reviewed Attestations Medical Necessity Statement*: patient s/p vaginal delivery, for care Coding Level of Care Code Acute Code for Chg Fwd Diagnoses (spontaneous vaginal delivery) O80
[2025-02-02] MEDS: HYDROcodone-acetaminophen 5-325 mg Tablet PO (14:24)
--- NOTE | 2025-02-02 14:50 | ANE.PACU2 ---
Inpatient post-anesthesia follow up: Airway intact: Yes Vital signs: Temperature 98.1 F Pulse Rate 86 Respiratory Rate 16 Blood Pressure 146/92 Pulse Oximetry 97 Oxygen Delivery Me thod Room Air Oxygen Flow Rate Fraction of Inspir ed Oxygen Hydration adequate: Yes Nausea and vomiting: No Pain level: 1 Mental status: Baseline Epidural Start/End: Epidural Start Date: 01/31/25 Epidural Start Time: 12:33 Epidural End Date: 02/01/25 Epidural End Time: 13:00
[2025-02-02 16:00] VITALS: BP 138/92; PULSE 67; RESP 18; TEMP 36.6
[2025-02-02 22:07] VITALS: BP 142/94; PULSE 74; RESP 16; TEMP 36.9; O2SAT 97
[2025-02-03 04:23] VITALS: BP 146/99; PULSE 68; RESP 16; TEMP 36.8; O2SAT 98
[2025-02-03] MEDS: PRENATAL VIT NO.130/IRON/FOLIC 1 EACH TABLET PO (09:09)
[2025-02-03] MEDS: docusate sodium 100 mg Capsule PO (09:09)
[2025-02-03] MEDS: ibuprofen 800 mg tablet PO ×2 (09:09→15:43)
[2025-02-03 09:18] VITALS: BP 143/90; PULSE 83; RESP 17; TEMP 36.6; O2SAT 97
--- NOTE | 2025-02-03 12:55 | PM.OBGYDC ---
Discharge Providers DRY YARD WORKER Date of Admission: 01/29/25 16:36 Date of Discharge: 02/03/25 Attending Provider at Admission: Dawn Acosta DO Attending Provider at Discharge: Erasmo Crowley MD Consults: none Primary DRY YARD WORKER: Erasmo Crowley MD Diagnoses at Discharge Discharge Diagnosis (1) (spontaneous vaginal delivery): Details from hospital stay: 24 y.o. s/p IOL at 40 w 3 d s/p low outlet forceps vaginal delivery with repair of third-degree perineal laceration patient did well in the period except for mildly elevated BPs patient had no headaches, blurry vision, abdominal pain, swelling She was discharged to home on the second day. She is to return to clinic in one week for BP check. Status: Inactive Reason for Visit Reason for Visit: Elective IOL Brief History: 24 y.o. G1 admitted at 40 w 3 d for induction of labor Hospital Course Hospital Course 24 y.o. s/p IOL at 40 w 3 d s/p low outlet forceps vaginal delivery with repair of third-degree perineal laceration patient did well in the period except for mildly elevated BPs patient had no headaches, blurry vision, abdominal pain, swelling She was discharged to home on the second day. She is to return to clinic in one week for BP check. Information Peripartum Data: Delivery Method: Vaginal Laceration description: Perineal - 3rd Degree Episiotomy description: Midline complications: none Physical Exam Narrative: General comfortable, awake, alert BPs 122 / 77; 150 / 94; 140 / 104; 138 / 92 VS afebrile Lungs: clear Cor: RRR Abd: soft, nontender. Fundus firm Ext: no edema Urinary Catheter Management: Elena: Cath Placed During This Visit: yes Reason for Continuing Indwelling Catheter: Other Urinary Catheter Date of Insertion: 01/31/25 Urinary Catheter Time of Insertion: 13:00 History History History 1 Term 0 Miscarriages/Ectopic Living Children Discharge Data Studies Completed and Pending Laboratory Results WBC 23.41 10^3/uL (3.29-11.43) H 02/01/25 14:35 RBC 4.04 10^6/uL (3.85-5.65) 02/01/25 14:35 Hgb 11.60 g/dL (11.27-16.99) 02/01/25 14:35 Hct 34.7 % (36-47) L 02/01/25 14:35 MCV 85.9 fl (85-98) 02/01/25 14:35 MCH 28.7 pg (27-33) 02/01/25 14:35 MCHC 33.4 g/dL (30-55) 02/01/25 14:35 RDW 13.4 % (12.1-15.1) 02/01/25 14:35 Plt Count 134 10^3/cmm (157-399) L 02/01/25 14:35 MPV 11.0 fL (7.4-10.4) H 02/01/25 14:35 Neut % (Auto) 74.0 % 01/29/25 15:36 Lymph % (Auto) 16.3 % 01/29/25 15:36 [place] % (Auto) 8.5 % 01/29/25 15:36 Eos % (Auto) 0.6 % 01/29/25 15:36 Baso % (Auto) 0.3 % 01/29/25 15:36 Neut # (Auto) 6.44 10^3/uL (1.8-7.7) 01/29/25 15:36 Lymph # (Auto) 1.4 10^3/uL (0.8-4.8) 01/29/25 15:36 [place] # (Auto) 0.7 10^3/uL (0.2-0.9) 01/29/25 15:36 Eos # (Auto) 0.1 10^3/uL (0.0-0.8) 01/29/25 15:36 Baso # (Auto) 0.0 10^3/uL (0.0-0.1) 01/29/25 15:36 Nucleated RBC % (auto) 0 % 01/29/25 15:36 Nucleated RBCs # 0.0 /100WBC 01/29/25 15:36 Blood Type O Positive 01/29/25 15:36 Rho(D) Type Rh positive 01/29/25 15:36 Antibody Screen Negative 01/29/25 15:36 Procedures Performed induction of labor forceps-assisted vaginal delivery repair of midline episiotomy with third-degree perineal laceration Vitals Last Vital Signs Temp 98.1 F 02/03/25 16:00 Pulse 86 02/03/25 16:00 Resp 16 02/03/25 16:00 BP 146/92 02/03/25 16:00 Pulse Ox 97 02/03/25 16:00 O2 Del Method Room Air 02/03/25 09:18 Results Labs OB ([facility]): Obstetrics US 01/04/25 Blood Type O Positive 01/29/25 Antibody Screen Negative 01/29/25 Hct, (36-47) 34.7 % L 02/01/25 Hgb, (11.27-16.99) 11.60 g/dL 02/01/25 Rho(D) Type Rh positive 01/29/25 Plt Count, (157-399) 134 10^3/cmm L 02/01/25 Hep Bs Antigen, (NON-REACTIVE) Non-reactive 07/08/24 Hep Bs Ag Confirmation Not Reportable 07/08/24 Hepatitis C Antibody, (Nonreactive) Non-reactive 07/08/24 Rubella IgG Antibody, (0.0-10.0) 53.1 IU/mL H 07/08/24 RPR, (Nonreactive) Nonreactive 07/08/24 HIV 1&2 Ab & HIV 1 Ag, (Non-Reactiv) Non-reactive 07/08/24 TSH, (0.27-4.20) 2.27 uIU/mL 01/15/25 Free T4, (0.82-1.77) 1.21 ng/dL 06/19/24 C.trachomatis RNA (TMA), (NOT DETECTED) Not detected 07/23/24 N.gonorrhoeae RNA (TMA), (NOT DETECTED) Not detected 07/23/24 T. vaginalis Amp RNA, (NOT DETECTED) Not detected 07/23/24 Chlamydia/GC Comment See note 07/23/24 Glucose 1 Hr 50 gm, (85-140) 156 mg/dL H 10/15/24 Gest Glucose Tolerance mg/dL 10/21/24 Uric Acid, (2.4-5.7) 5.0 mg/dL 01/11/25 HCG, Qual, (Negative) Positive H 06/19/24 Urine Opiates Screen, (Negative) Negative ng/mL 07/08/24 Ur Barbiturates Screen, (Negative) Negative ng/mL 07/08/24 Ur Phencyclidine Scrn, (Negative) Negative ng/mL 07/08/24 Ur Amphetamines Screen, (Negative) Negative ng/mL 07/08/24 U Benzodiazepines Scrn, (Negative) Negative ng/mL 07/08/24 Urine Cocaine Screen, (Negative) Negative ng/mL 07/08/24 U Marijuana (THC) Screen, (Negative) Negative ng/mL 07/08/24 Micro Urine Specimen 01/11/25 Pap Smear Interpret See note 07/23/24 Discharge Plan Discharge Patient Disposition: Home Condition: Stable Prescriptions: Continued PNV #[id number] 30 mg iron-10 mg iron-1 mg capsule 1 cap PO DAILY promethazine 25 mg tablet 25 mg PO Q6H PRN (Reason: nausea and vomiting) Qty: 30 0RF Rx Instructions: take 1-2 tabs levothyroxine [Levoxyl] 150 mcg tablet 150 mcg PO DAILY Qty: 30 2RF Discharge Orders: Discharge Order (Routine); Ordered 02/03/25 Ordered By: Erasmo Crowley Referrals: Yesica Lopez APN, JESSICA [Nurse Practitioner, DRY YARD WORKER] - 02/10/25 2:15 pm Discharge Diet: Usual diet Discharge Activity: Increase activity as tolerated Patient Instructions: Depression (DC), Opioid Safety (DC), Preeclampsia and Eclampsia After Delivery (GEN), Hemorrhage (DC), OB Discharge Report, OB Food/Drug Interaction Guide, Opioid Safety, OB Home Care, OB Vaginal Deliveries - [facility], Abnormal Bleeding Activity Restrictions/Additional Instructions: Return to OB clinic in one week for BP check Discharge Attestations DRY YARD WORKER Time Spent in Discharge Care*: less than 30 min Coding Level of Care Code Acute Code for Chg Fwd Diagnoses (spontaneous vaginal delivery) O80
[2025-02-03 16:00] VITALS: BP 146/92; PULSE 86; RESP 16; TEMP 36.7; O2SAT 97
== END 2025-02-03 16:00 | disposition home or self-care (01) | DRG 768 ==
LOC: OPOB 02-01 09:11
PROVIDERS: Admitting Provider Obstetrics & Gynecology; Visit Provider Obstetrics & Gynecology
DX: O48.0 Post-term pregnancy (principal); Z37.0 Single live birth; O70.20 Third degree perineal laceration during delivery, unspecified; O75.2 Pyrexia during labor, not elsewhere classified; E03.9 Hypothyroidism, unspecified; Z3A.40 40 weeks gestation of pregnancy; O99.284 Endocrine, nutritional and metabolic diseases complicating childbirth; O77.0 Labor and delivery complicated by meconium in amniotic fluid
CPT/HCPCS: 36415; 51702; 59409; 84315; 85025; 85027; 86850; 86900; 96374; J0696; J2405; J2590; J2795; J7121; J9999

== ENCOUNTER → 2025-03-26 14:16 | Outpatient (BNVA) | payer BC, MEDICAID, SELFPAY | PROVIDERS: Visit Provider Nurse Practitioner Women's Health | DX: E03.9 Hypothyroidism, unspecified (principal) | CPT/HCPCS: 84443 ==